=== PATIENT | male | born 1975 | race African-American/Black ===

== ENCOUNTER 2021-08-06 07:21 | Emergency (ER) | payer SELFPAY ==
[~2021-08-06] VITALS: Ht 180.3 cm; Wt 68.9 kg
[2021-08-06 07:23] VITALS: BP 143/91
--- NOTE | 2021-08-06 07:31 | NUR ---
PT AMBULATED TO ER BED 4
--- NOTE | 2021-08-06 07:44 | NUR ---
46 YEARS OLD MALE ALERT, ORIENTED X4 WALKING TO ER C/O LEGS SWELIING, TINGLING SENSATIONS FOR 1 WEAK, DENIES ANY MEDICAL HISTORY, NO SOB NO CP.
[2021-08-06] MEDS ORDERED: GABAPENTIN 300 MG CAP PO ONE (07:45)
[2021-08-06 08:24] LABS: BASOPHILS # (AUTO) 0.1 K/uL (0.00-0.22); EOSINOPHILS # (AUTO) 0.1 K/uL (0-0.4); EOSINOPHILS % (AUTO) 1.8 % (0.0-4.0); HEMOGLOBIN 10.5 g/dL (12.0-18.0); LYMPHOCYTES # (AUTO) 1.2 K/uL (2.0-11.5); LYMPHOCYTES % (AUTO) 20.1 % (20.5-51.1); MEAN CORPUSCULAR HEMOGLOBIN 34 pg (27-31); MEAN CORPUSCULAR HGB CONC 35 g/dL (33-37); MEAN CORPUSCULAR VOLUME 95.2 fL (80-94); MONOCYTES % (AUTO) 16.8 % (1.7-9.3); NEUTROPHILS # (AUTO) 3.7 K/uL (1.8-7.7); NEUTROPHILS % (AUTO) 60.3 % (42.2-75.2); PLATELET COUNT (AUTO) 540 K/uL (140-450); RED BLOOD CELL COUNT(AUTO) 3.15 MIL/uL (4.20-6.10); RED CELL DISTRIBUTION WIDTH 16.3 % (11.6-13.7); WHITE BLOOD COUNT (AUTO) 6.1 K/uL (4.8-10.8)
[2021-08-06 08:41] LABS: ALBUMIN 3.3 g/dL (3.4-5.0); ANION GAP 9.2 (8-16); CARBON DIOXIDE 32.3 mmol/L (21-32); CREATININE 0.8 mg/dL (0.6-1.3); TOTAL BILIRUBIN 0.4 mg/dL (0.0-1.0)
[2021-08-06 08:45] LABS: POTASSIUM 2.5 mmol/L (3.5-5.1)
[2021-08-06] MEDS ORDERED: POTASSIUM CHL 20 MEQ/NACL 0.9% 1,000 ML IV ONE (08:50)
[2021-08-06] MEDS ORDERED: POTASSIUM CHLORIDE 10 MEQ TABER PO ONE (08:50)
[2021-08-06] MEDS ORDERED: KCL 20 MEQ/WATER INJ PREMIX 100 ML IV ONE ×2 (09:35→14:00)
[2021-08-06] MEDS ORDERED: NACL 0.9% 250 ML IV ONE ×2 (09:50→14:00)
--- NOTE | 2021-08-06 10:09 | NUR ---
PATIENT WITH LOW POTASSIUM, MED PO GIVEN TOLERATED WELL, K-RIDER IN PROGRESS NO SOB NO CP, SR ON THE MONITOR.
--- NOTE | 2021-08-06 11:59 | NUR ---
PATIENT RESTING, VSS, NO CP, NO TINGLING REPEAT K+ DRAWN.
--- NOTE | 2021-08-06 13:32 | NUR ---
COVID SWAB COLLECTED/SENT, AWAITING FOR ADMIT TELE BED DX HYPOKALEMIA.
--- NOTE | 2021-08-06 13:45 | NUR ---
DR. MIRANDA AWARE OF MEDI-JAMES SYSTEM DOWN, DISCUSSED WITH PATIENT ADMISSION. STATED PATIENT WISHES TO NOT BE ADMITTED. PER DR. MIRANDA PATIENT WILL REMAIN IN ER FOR REPEAT K LEVEL.
[2021-08-06] MEDS ORDERED: MAGNESIUM OXIDE 400 MG TAB PO ONE (14:00)
--- NOTE | 2021-08-06 16:20 | NUR ---
PATIENT DENIES PAIN, TOLERATED PO INTAKE VSS.
[2021-08-06 19:14] VITALS: BP 130/70
--- NOTE | 2021-08-06 19:15 | NUR ---
Patient discharged with v/s stable. Written and verbal after care instructions given and explained to paTIENT. PaTIENT verbalized understanding. Ambulatory WITH STEADY GAIT to home. All questions addressed prior to discharge. Advised to follow up with PMD.
== END 2021-08-06 19:20 | disposition home or self-care (01) ==
LOC: MED 07:21
DX: E87.6 Hypokalemia (principal); Z20.822 Contact with and (suspected) exposure to COVID-19; R60.0 Localized edema; Z87.891 Personal history of nicotine dependence
CPT/HCPCS: 36415; 80053; 83735; 83880; 84132; 85025; 87426; 93005; 96365; 96366; 99285; J3480; J7030